=== PATIENT | female | born 1985 | race African-American/Black ===

== ENCOUNTER 2021-10-06 12:40 | Inpatient (IN) ==
[2021-10-06] MEDS ORDERED: LORazepam 2 MG/1 ML VIAL IV PRN (13:13)
[2021-10-06] MEDS ORDERED: ACETAMINOPHEN 325 MG TABLET PO PRN (13:13)
[2021-10-06] MEDS ORDERED: ONDANSETRON 4 MG/2 ML VIAL IV PRN (13:13)
[2021-10-06 13:35] LABS: Basophils % 0.2 % (0.0-0.8); Eosinophils % 0.2 % (0.00-10.9); Hematocrit 37.6 VOL% (35.7-47.0); Hemoglobin 11.8 GM/DL (12.0-16.0); Immature Granulocytes % 0.4 %; Immature Granulocytes Absolute 0.02 #; Lymphocytes # 2.1 10*3/uL (1.4-4.0); Lymphocytes % 36.4 % (21.3-54.2); Mean Corpuscular HGB Conc 31.4 GM/DL (32-36); Mean Corpuscular Volume 93.8 FL (87-102); Mean Platelet Volume 10.1 FL (9.6-12.0); Monocytes % 9.3 % (1.7-12.7); Neutrophils % 53.5 % (38.7-73.9); Platelet Count 330 T/CUMM (130-400); Red Blood Count 4.01 MC/CUMM (3.8-5.5); Red Cell Distribution Width 12.8 % (9.3-17.3); White Blood Count 5.7 T/CUMM (4-12)
[2021-10-06 13:58] LABS: Alanine Aminotransferase 14 U/L (13-56); Alkaline Phosphatase 87 U/L (45-117); Aspartate Amino Transferase 13 U/L (0-37); Bilirubin,Total < 0.39 MG/DL (0.20-1.00); Blood Urea Nitrogen 6 MG/DL (7-18); Calcium 8.7 MG/DL (8.5-10.1); Carbon Dioxide 23 MMOL/L (21-32); Estimated Glom Filtration Rate 96 ML/MIN; Glucose 91 MG/DL (74-106); Osmolality,Calculated 280.1 MOS/KG (273-304); Sodium 142 MMOL/L (136-145); Total Protein 7.5 G/DL (6.4-8.2)
[2021-10-06] MEDS: busPIRone 10 MG TABLET PO SCH ×2 (15:32→21:36)
[2021-10-06 18:22] LABS: Amorphous Crystals,Urine Occasional /HPF (Few); Bilirubin,Urine Negative (Negative); Blood, Urine Negative (Negative); Glucose,Urine (UA) Negative (Negative); Ketones,Urine 5 mg/dL (Negative); Mucus,Urine Occasional /LPF (Occasional); Nitrite,Urine Negative (Negative); Protein,Urine Negative; RBC,Urine <1 /HPF (0-4); Squamous Epithelial Cell,Urine Occasional /HPF (0-10); Urine Appearance Slightly Hazy (Clear); Urine Color Yellow (Yellow); Urine Specific Gravity 1.016 (1.001-1.035); Urine Urobilinogen < 2.0 EU/DL (0.2-1.0)
[2021-10-06 18:38] LABS: Barbiturates Screen,Urine Negative (Negative); Benzodiazepines Screen,Urine Negative (Negative); Cannabinoid Screen,Urine Negative (Negative); Opiate Screen,Urine Negative (Negative); Phencyclidine Screen,Urine Negative (Negative)
[2021-10-06] MEDS: lamoTRIgine 100 MG TABLET PO SCH (21:36)
[2021-10-06] MEDS: TOPIRAMATE 100 MG TABLET PO SCH (21:36)
[2021-10-06] MEDS: TOPIRAMATE 25 MG TABLET PO SCH (21:36)
[2021-10-06] MEDS: PHENYTOIN ER 100 MG CAPSULE PO SCH (21:36)
[2021-10-06] MEDS: DOCUSATE SODIUM 100 MG CAPSULE PO SCH (21:36)
[2021-10-07 06:48] LABS: Basophils % 0.4 % (0.0-0.8); Eosinophils % 0.4 % (0.00-10.9); Hematocrit 37.6 VOL% (35.7-47.0); Hemoglobin 11.7 GM/DL (12.0-16.0); Immature Granulocytes % 0.1 %; Immature Granulocytes Absolute 0.01 #; Lymphocytes # 3.1 10*3/uL (1.4-4.0); Lymphocytes % 41.4 % (21.3-54.2); Mean Corpuscular HGB Conc 31.1 GM/DL (32-36); Mean Corpuscular Volume 93.8 FL (87-102); Mean Platelet Volume 10.4 FL (9.6-12.0); Monocytes % 10.2 % (1.7-12.7); Neutrophils % 47.5 % (38.7-73.9); Platelet Count 335 T/CUMM (130-400); Red Blood Count 4.01 MC/CUMM (3.8-5.5); Red Cell Distribution Width 13.1 % (9.3-17.3); White Blood Count 7.5 T/CUMM (4-12)
[2021-10-07 07:18] LABS: Albumin 3.1 G/DL (3.4-5.0); Calcium 9.2 MG/DL (8.5-10.1); Osmolality,Calculated 277.4 MOS/KG (273-304); Potassium 3.8 MMOL/L (3.5-5.1); Total Protein 7.5 G/DL (6.4-8.2)
[2021-10-07] MEDS: DOCUSATE SODIUM 100 MG CAPSULE PO SCH ×2 (08:19→21:35)
[2021-10-07] MEDS: TOPIRAMATE 25 MG TABLET PO SCH ×2 (08:19→21:35)
[2021-10-07] MEDS: busPIRone 10 MG TABLET PO SCH ×3 (08:19→21:36)
[2021-10-07] MEDS: lamoTRIgine 100 MG TABLET PO SCH ×2 (08:19→21:36)
[2021-10-07] MEDS: PHENYTOIN ER 100 MG CAPSULE PO SCH ×2 (08:19→21:36)
[2021-10-07] MEDS: PANTOPRAZOLE 40 MG TABLET PO SCH (08:19)
[2021-10-07] MEDS: TOPIRAMATE 100 MG TABLET PO SCH ×2 (08:19→21:36)
[2021-10-07] MEDS: carBAMazepine CHEW 100 MG TABLET PO SCH ×3 (12:35→23:53)
[2021-10-08] MEDS: carBAMazepine CHEW 100 MG TABLET PO SCH ×4 (05:39→23:33)
[2021-10-08] MEDS: DOCUSATE SODIUM 100 MG CAPSULE PO SCH ×2 (09:33→21:30)
[2021-10-08] MEDS: busPIRone 10 MG TABLET PO SCH ×3 (09:34→21:30)
[2021-10-08] MEDS: PANTOPRAZOLE 40 MG TABLET PO SCH (09:34)
[2021-10-08] MEDS: PHENYTOIN ER 100 MG CAPSULE PO SCH ×2 (09:34→21:30)
[2021-10-08] MEDS: TOPIRAMATE 25 MG TABLET PO SCH ×2 (09:34→21:31)
[2021-10-08] MEDS: TOPIRAMATE 100 MG TABLET PO SCH ×2 (09:34→21:31)
[2021-10-08] MEDS: lamoTRIgine 100 MG TABLET PO SCH ×2 (11:29→21:30)
[2021-10-09] MEDS: carBAMazepine CHEW 100 MG TABLET PO SCH ×5 (06:24→23:55)
[2021-10-09 07:08] LABS: Basophils % 0.5 % (0.0-0.8); Eosinophils % 0.5 % (0.00-10.9); Hematocrit 37.6 VOL% (35.7-47.0); Hemoglobin 11.6 GM/DL (12.0-16.0); Immature Granulocytes % 0.2 %; Immature Granulocytes Absolute 0.01 #; Lymphocytes # 1.6 10*3/uL (1.4-4.0); Mean Corpuscular HGB Conc 30.9 GM/DL (32-36); Mean Corpuscular Volume 94.9 FL (87-102); Neutrophils % 63.8 % (38.7-73.9); Platelet Count 327 T/CUMM (130-400); Red Blood Count 3.96 MC/CUMM (3.8-5.5); Red Cell Distribution Width 13.3 % (9.3-17.3); White Blood Count 5.9 T/CUMM (4-12)
[2021-10-09 07:36] LABS: Albumin 2.9 G/DL (3.4-5.0); Bilirubin,Total 0.9 MG/DL (0.20-1.00); Potassium 3.9 MMOL/L (3.5-5.1); Total Protein 7.6 G/DL (6.4-8.2)
[2021-10-09] MEDS: PHENYTOIN ER 100 MG CAPSULE PO SCH ×2 (10:59→23:55)
[2021-10-09] MEDS: TOPIRAMATE 25 MG TABLET PO SCH ×2 (10:59→23:55)
[2021-10-09] MEDS: busPIRone 10 MG TABLET PO SCH ×3 (10:59→23:55)
[2021-10-09] MEDS: TOPIRAMATE 100 MG TABLET PO SCH ×2 (10:59→23:55)
[2021-10-09] MEDS: lamoTRIgine 100 MG TABLET PO SCH ×2 (11:00→23:55)
[2021-10-09] MEDS: DOCUSATE SODIUM 100 MG CAPSULE PO SCH ×2 (11:00→23:55)
[2021-10-09] MEDS: PANTOPRAZOLE 40 MG TABLET PO SCH (11:00)
[2021-10-10] MEDS: carBAMazepine CHEW 100 MG TABLET PO SCH ×3 (05:06→17:20)
[2021-10-10] MEDS: lamoTRIgine 100 MG TABLET PO SCH (09:11)
[2021-10-10] MEDS: busPIRone 10 MG TABLET PO SCH ×2 (09:11→14:36)
[2021-10-10] MEDS: PHENYTOIN ER 100 MG CAPSULE PO SCH (09:12)
[2021-10-10] MEDS: TOPIRAMATE 25 MG TABLET PO SCH (09:12)
[2021-10-10] MEDS: TOPIRAMATE 100 MG TABLET PO SCH (09:12)
[2021-10-10] MEDS: DOCUSATE SODIUM 100 MG CAPSULE PO SCH (09:12)
[2021-10-10] MEDS: PANTOPRAZOLE 40 MG TABLET PO SCH (09:12)
[2021-10-10] MEDS ORDERED: MECLIZINE 12.5 MG TABLET PO ONE (14:17)
[2021-10-10 16:40] VITALS: BP 104/65
== END 2021-10-10 17:31 | disposition home or self-care (01) | DRG 101 ==
LOC: EDBD → EDUNIT# → N.EDINP 12:40 → N.ED 12:40 → N.TELEN 20:10
PROVIDERS: ADMIT Family Medicine; ATTEND Family Medicine